=== PATIENT | male | born 1950 | race Caucasian/White ===

== ENCOUNTER 2020-04-24 08:28 | Day surgery (SDC) | payer MEDICARE, OTHER ==
[2020-04-21 11:30] LABS: HEMATOCRIT 36.2 % (37.9-51.0); HEMOGLOBIN 12.9 g/dL (13.5-17.0); MEAN CORPUSCULAR HEMOGLOBIN 33.8 pg (27.0-33.4); MEAN CORPUSCULAR HGB CONC 35.7 g/dL (32.0-36.0); MEAN CORPUSCULAR VOLUME 95 fl (80-97); PLATELET COUNT 260 10^3/uL (150-450); RED BLOOD COUNT 3.82 10^6/uL (4.35-5.55); RED CELL DISTRIBUTION WIDTH 15.5 % (11.5-14.0); WHITE BLOOD COUNT 7.4 10^3/uL (4.0-10.5)
--- NOTE | 2020-04-21 11:52 | RADIOLOGY REPORT (SQ) ---
EXAM DESCRIPTION: CHEST 2 VIEWS IMAGES COMPLETED DATE/TIME: 04/21/2020 11:41 am REASON FOR STUDY: PRE OP TESTING COMPARISON: None. EXAM PARAMETERS: NUMBER OF VIEWS: two views TECHNIQUE: Digital Frontal and Lateral radiographic views of the chest acquired. RADIATION DOSE: NA LIMITATIONS: none FINDINGS: LUNGS AND PLEURA: No opacities, masses or pneumothorax. No pleural effusion. MEDIASTINUM AND HILAR STRUCTURES: No masses or contour abnormalities. HEART AND VASCULAR STRUCTURES: Heart normal size. No evidence for failure. BONES: Wedge deformity of a lower thoracic vertebra, presumably old. HARDWARE: None in the chest. OTHER: No other significant finding. IMPRESSION: NO ACUTE RADIOGRAPHIC FINDING IN THE CHEST. TECHNICAL DOCUMENTATION: JOB ID: [id number] 2010 RV ID- All Rights Reserved Reading location - IP/workstation name: [email or web address]
[2020-04-21 11:57] LABS: ANION GAP 10 (5-19); BLOOD UREA NITROGEN 26 mg/dL (7-20); CALCIUM 9.9 mg/dL (8.4-10.2); CARBON DIOXIDE 26 mmol/L (22-30); CHLORIDE 104 mmol/L (98-107); GLUCOSE 100 mg/dL (75-110); POTASSIUM 5.1 mmol/L (3.6-5.0)
[~2020-04-24 08:28] MED LIST: ACETAMINOPHEN 1,000 MG/100 ML RTUPB IV ONE; ACETAMINOPHEN 1,000 MG/100 ML RTUPB IV PRN; CEFAZOLIN 2 GM/D5W RTU 2 GM/50 ML RTUPB IV ONE; CEFAZOLIN 2 GM/D5W RTU 2 GM/50 ML RTUPB IV PRN; FENTANYL CITRATE INJ/PF 100 MCG/2 ML AMPUL ONE; HYDROMORPHONE HCL INJ/PF 2 MG/ML AMPULE ONE; IBUPROFEN 800 MG in NORMAL SALINE 250 ML IV PRN; LACTATED RINGERS 1000 ML IV PRN; LIDOCAINE 0.5% INJ-PF (5 MG/ML) 50 ML SDV SUBCUT PRN; MIDAZOLAM 2 MG/2 ML INJ ONE; PROPOFOL INJ 200 MG/20 ML VIAL IV ONE
[2020-04-24] MEDS ORDERED: DEXAMETHASONE SOD PHOSPHATE INJ 4 MG/1 ML VIAL ONE ×2 (09:09→15:36)
[2020-04-24] MEDS ORDERED: ONDANSETRON HCL INJ/PF 4 MG/2 ML SDV ONE ×2 (09:09→15:36)
[2020-04-24] MEDS ORDERED: BUPIVACAINE HCL 0.25 % INJ/PF (2.5 MG/1 ML) 30 ML VIAL ONE (09:14)
[2020-04-24] MEDS ORDERED: MORPHINE SULFATE 10 MG/ML INJ IV PRN (09:56)
[2020-04-24] MEDS ORDERED: MEPERIDINE HCL/PF INJ 25 MG/1 ML DISP.SYRIN IV PRN (09:56)
[2020-04-24] MEDS ORDERED: ONDANSETRON HCL INJ/PF 4 MG/2 ML SDV IV PRN (09:56)
[2020-04-24] MEDS ORDERED: FENTANYL CITRATE INJ/PF 100 MCG/2 ML AMPUL IV PRN ×3 (09:56)
[2020-04-24] MEDS ORDERED: DIPHENHYDRAMINE HCL 50 MG/ML VIAL IV PRN (09:56)
--- NOTE | 2020-04-24 11:26 | Discharge Summary ---
Discharge Summary (SDC) - Discharge Final Diagnosis: left inguinal hernia, direct Date of Surgery: 04/24/20 Discharge Date: 04/24/20 Condition: Stable Treatment or Instructions: d/c home. diet: as tolerated. No lifting >10 lbs x 4 weeks. No strenuous activity. Bern 10/325 mg PO q6 hrs PRN pain. F/u with me in 7-10 days. Referrals: BRYANT HENSON MD [Primary Care Provider] - Discharge Diet: As Tolerated Respiratory Treatments at Home: Deep Breathing/Coughing, Incentive Spirometer Discharge Activity: Balance Activity w/Rest, No Lifting Over 10 Pounds, No Lifting/Push/Pulling Home Care Assistance: None Needed Report the Following to Your Physician Immediately: Shortness of Breath, Nausea, Vomiting, Increase in Pain, Fever over 101 Degrees, Unusual Bleeding, Redness
[2020-04-24] MEDS ORDERED: HYDROCODONE/ACETAMINOPHEN 10-325 MG TABLET PO PRN (11:57)
--- NOTE | 2020-04-24 12:01 | Operative Report ---
Nonrecallable Operative Report DATE OF SURGERY: 04/24/20 PREOPERATIVE DIAGNOSIS: Large left inguinal hernia POSTOPERATIVE DIAGNOSIS: Large left direct inguinal hernia. OPERATION: Robot-assisted laparoscopic left inguinal hernia repair with mesh SURGEON: CARLENE RENDON ANESTHESIA: GA TISSUE REMOVED OR ALTERED: None COMPLICATIONS: None apparent ESTIMATED BLOOD LOSS: Minimal PROCEDURE: Drains/implants: Large left 3 DMax inguinal hernia mesh. Procedure in detail: After informed consent was obtained, the patient was brought to the operating room and laid in the supine position. The area of the abdomen was prepped and draped in a normal sterile fashion. A supraumbilical incision was created with 15 blade scalpel. Dissection was carried through the subcutaneous tissues using sharp and blunt dissection. The linea alba fascia was incised sharply, the abdomen was entered sharply. The balloon trocar was inserted, and pneumoperitoneum was achieved. Two 8 mm right and left robotic trochars were then placed under direct laparoscopic visualization. The robot was brought over the patient and docked appropriately. I then assumed my position at the surgeon's console. Attention was turned to the left groin. There was a large, direct inguinal hernia defect in this area. A preperitoneal dissection was undertaken. This was performed using sharp dissection, blunt dissection, and electrocautery. The indirect position was inspected. The cord was skeletonized, however there was no significant hernia defect in this position. The large direct defect was reapproximated using 2-0 VLock suture in simple running fashion. After the direct defect was reapproximated, a large left 3D max inguinal hernia mesh was placed into the preperitoneal space. The mesh was sutured medially and superiorly using 2-0 Vicryl suture in simple interrupted fashion. The peritoneum was then closed over the mesh using 2-O absorbable V lock suture in simple running fashion. The repair was inspected and found to be in good order. I then rescrubbed into the case. The trocars were removed. Pneumoperitoneum was relieved. The supraumbilical fascia was closed using 0 Vicryl suture in [id number] fashion. The skin was closed using 4-0 vicryl Rapide suture in running subcuticular fashion. Dressings were placed and the procedure was concluded. All sponge, instrument, and needle counts were correct x2. Condition: stable
[2020-04-24] MEDS ORDERED: HYDROCODONE/ACETAMINOPHEN 10-325 MG TABLET ONE (12:02)
[2020-04-24 13:32] VITALS: BP 149/90
[2020-04-24] MEDS ORDERED: ROCURONIUM BROMIDE INJ 50 MG/5 ML VIAL IV ONE (15:36)
[2020-04-24] MEDS ORDERED: PHENYLEPHRINE HCL INJ/PF 10 MG/1 ML SDV ONE (15:36)
[2020-04-24] MEDS ORDERED: GLYCOPYRROLATE 1 MG/5 ML VIAL ONE (15:36)
== END 2020-04-24 12:50 | disposition home or self-care (01) ==
LOC: OROUT 08:28
PROVIDERS: ATTEND Surgery
DX: K40.90 Unilateral inguinal hernia, without obstruction or gangrene, not specified as recurrent (principal); Z01.812 Encounter for preprocedural laboratory examination; Z20.822 Contact with and (suspected) exposure to COVID-19; R05 Cough; I10 Essential (primary) hypertension; F17.210 Nicotine dependence, cigarettes, uncomplicated; Z98.52 Vasectomy status; Z86.11 Personal history of tuberculosis
CPT/HCPCS: 49650; 36415 ×2; 84132; 85027; 80048; 71046; U0003; J2250; J3490 ×2; J1100; J3010; J2370; J2405; J7050; J2704; J0690; J0131; A9270; J1741; C9803; 840; 87635; C1758; C1781; J1170